=== PATIENT | male | born 1975 | race Caucasian/White ===

== ENCOUNTER 2024-01-15 18:42 | Observation (INO) | payer OTHER ==
[~2024-01-15] VITALS: Ht 185.4 cm; Wt 110.2 kg
[2024-01-15 19:02] LABS: BASOPHILS # (AUTO) 0.06 K/uL (0.00-0.20); BASOPHILS % (AUTO) 0.7 % (0.0-5.0); EOSINOPHILS # (AUTO) 0.31 K/uL (0.00-0.70); EOSINOPHILS % (AUTO) 3.8 % (0.0-8.0); HEMATOCRIT 40.4 % (42-54); IMMATURE GRANULOCYTE ABSOLUTE 0.02 K/uL (0-1); LYMPHOCYTES # (AUTO) 2.6 K/uL (1.0-4.8); LYMPHOCYTES % (AUTO) 30.9 % (21.0-51.0); MEAN CORPUSCULAR HEMOGLOBIN 27.6 pg (27.0-33.0); MEAN CORPUSCULAR HGB CONC 33.4 g/dL (32.0-36.0); MEAN CORPUSCULAR VOLUME 82.4 fL (79-99); MONOCYTES # (AUTO) 0.9 K/uL (0.1-1.0); MONOCYTES % (AUTO) 10.3 % (3.0-13.0); NEUTROPHILS # (AUTO) 4.5 K/uL (1.8-7.7); NEUTROPHILS % (AUTO) 54.1 % (40.0-77.0); PLATELET COUNT (AUTO) 248 K/uL (130-400); RED CELL DISTRIBUTION WIDTH 14.1 % (11.0-15.5); WHITE BLOOD COUNT (AUTO) 8.3 K/uL (4.8-10.8)
[2024-01-15 19:15] LABS: CREATININE 0.8 mg/dL (0.5-1.3); POTASSIUM 4.1 mmol/L (3.5-5.1)
[2024-01-15 19:19] LABS: INR <= 0.93 (0.85-1.15)
[2024-01-15 19:20] LABS: ALBUMIN 3.3 g/dL (3.5-5.0); BILIRUBIN,TOTAL 0.4 mg/dL (0.2-1.0); PARTIAL THROMBOPLASTIN TIME 26.1 SEC (26.3-35.5); TOTAL PROTEIN, SERUM 7.1 g/dL (6.0-8.3)
[2024-01-15 19:26] LABS: B-TYPE NATRIURETIC PEPTIDE 93 pg/mL (0-100)
[2024-01-15] MEDS ORDERED: MAGNESIUM 2GM PREMIX 50ML 50 ML IV PRN (20:30)
[2024-01-15] MEDS ORDERED: KCL 20 MEQ ERTAB PO PRN (20:30)
[2024-01-15] MEDS ORDERED: POTASSIUM CHLORIDE 10MEQ/100ML 100 ML IV PRN (20:30)
[2024-01-15] MEDS ORDERED: POTASSIUM CHLORIDE 10% ELIXIR 20 MEQ/15 ML UDCUP PO PRN (20:30)
[2024-01-15] MEDS: ATORVASTATIN 40 MG TABLET PO ONE (20:35)
[2024-01-15] MEDS: FAMOTIDINE 20MG VIAL IV ONE (20:35)
[2024-01-15] MEDS: ASPIRIN 325MG TAB PO ONE (20:35)
[2024-01-15] MEDS: MORPHINE 2 MG SYG IVP ONE (20:36)
[2024-01-15] MEDS: NITROGLYCERIN 0.4 MG SL TAB SL PRN (20:40)
[2024-01-15] MEDS ORDERED: ACETAMINOPHEN 325 MG TAB PO PRN ×2 (21:00)
[2024-01-15] MEDS ORDERED: DiphenhydrAMINE HCL 50 MG/ML VIAL IV PRN (21:00)
[2024-01-15] MEDS ORDERED: NITROGLYCERIN 0.4 MG SL TAB SL PRN (21:00)
[2024-01-15] MEDS ORDERED: MAG/ALUM/SIMETH 30 ML UDCUP PO PRN (21:00)
[2024-01-15] MEDS: FAMOTIDINE 20MG VIAL IV SCH (21:00)
[2024-01-15] MEDS ORDERED: HYDRALAZINE 20MG/ML VIAL IV PRN (21:00)
[2024-01-15] MEDS ORDERED: ZOLPIDEM TARTRATE 5 MG TAB PO PRN (21:00)
[2024-01-15] MEDS ORDERED: GUAIFENESIN-DM 200/20 MG 10 ML PO PRN (21:00)
[2024-01-15] MEDS ORDERED: ALBUTEROL 0.083% 2.5 MG/3 ML INH IH PRN (21:00)
[2024-01-15] MEDS ORDERED: LACTULOSE 20 GM/30 ML UDCUP PO PRN (21:00)
[2024-01-15] MEDS: HEPARIN 5,000 UNIT VIAL SQ SCH (22:33)
[2024-01-15] MEDS: 0.9%NACL 1000ML 1,000 ML IV SCH (22:34)
[2024-01-15] MEDS ORDERED: GABA300S3 PO (22:56)
[2024-01-15] MEDS ORDERED: APIX5TAB PO (22:56)
[2024-01-15 23:11] VITALS: O2SAT 94
[2024-01-15 23:30] VITALS: BP 127/82; PULSE 96; RESP 18
[2024-01-16] MEDS: ONDANSETRON 4MG INJ IV PRN (00:08)
[2024-01-16] MEDS: KETOROLAC 15MG/ML VIAL (15MG/ML) IV PRN (00:08)
[2024-01-16] MEDS: IPRATROPIUM/ALBUTEROL SULFATE 3 ML SOLUTION IH SCH (00:28)
[2024-01-16 00:31] VITALS: PULSE 96; RESP 18
[2024-01-16 03:29] LABS: BASOPHILS # (AUTO) 0.05 K/uL (0.00-0.20); BASOPHILS % (AUTO) 0.8 % (0.0-5.0); EOSINOPHILS # (AUTO) 0.33 K/uL (0.00-0.70); EOSINOPHILS % (AUTO) 5.1 % (0.0-8.0); HEMATOCRIT 36.3 % (42-54); IMMATURE GRANULOCYTE ABSOLUTE 0.02 K/uL (0-1); LYMPHOCYTES # (AUTO) 2.6 K/uL (1.0-4.8); LYMPHOCYTES % (AUTO) 40.8 % (21.0-51.0); MEAN CORPUSCULAR HEMOGLOBIN 28.3 pg (27.0-33.0); MEAN CORPUSCULAR HGB CONC 33.9 g/dL (32.0-36.0); MEAN CORPUSCULAR VOLUME 83.4 fL (79-99); MONOCYTES # (AUTO) 0.7 K/uL (0.1-1.0); MONOCYTES % (AUTO) 10.3 % (3.0-13.0); NEUTROPHILS # (AUTO) 2.7 K/uL (1.8-7.7); NEUTROPHILS % (AUTO) 42.7 % (40.0-77.0); PLATELET COUNT (AUTO) 207 K/uL (130-400); RED BLOOD CELL COUNT(AUTO) 4.35 MIL/uL (4.50-6.20); RED CELL DISTRIBUTION WIDTH 13.9 % (11.0-15.5); WHITE BLOOD COUNT (AUTO) 6.4 K/uL (4.8-10.8)
[2024-01-16 03:51] LABS: ALBUMIN 2.7 g/dL (3.5-5.0); BILIRUBIN,DIRECT 0.1 mg/dL (0.0-0.3); BILIRUBIN,TOTAL 0.5 mg/dL (0.2-1.0); CREATININE 0.7 mg/dL (0.5-1.3); MAGNESIUM 1.9 mg/dL (1.80-2.40); POTASSIUM 3.4 mmol/L (3.5-5.1)
[2024-01-16 04:00] VITALS: BP 107/74; PULSE 85; RESP 17
[2024-01-16 04:00] LABS: HEMOGLOBIN A1C 5.2 % (4.0-6.0)
[2024-01-16] MEDS: MORPHINE 2 MG SYG IVP ONE (05:24)
[2024-01-16 06:01] LABS: APPEARANCE,URINE CLEAR (CLEAR); BILIRUBIN,URINE NEGATIVE (NEGATIVE); COLOR,URINE YELLOW (YELLOW); GLUCOSE, URINE (UA) NEGATIVE (NEGATIVE); KETONES,URINE NEGATIVE (NEGATIVE); LEUKOCYTE ESTERASE ,URINE NEGATIVE Leu/uL (NEGATIVE); MUCUS,URINE RARE LPF (None Seen); NITRATE,URINE NEGATIVE (NEGATIVE); OCCULT BLOOD,URINE NEGATIVE (NEGATIVE); PH,URINE 6.5 (5.0-8.0); PROTEIN,URINE NEGATIVE (NEGATIVE); RBC,URINE 0-1 /HPF (0-1); UROBILINOGEN,URINE 0.2 mg/dL (0.2-1.0); WBC,URINE 0-1 /HPF (0-1)
[2024-01-16 06:24] VITALS: PULSE 78; RESP 18
[2024-01-16 08:00] VITALS: BP 122/69; PULSE 81; RESP 19
[2024-01-16] MEDS: ACETAMINOPHEN 325 MG TAB PO PRN (08:55)
[2024-01-16] MEDS ORDERED: POTASSIUM CHLORIDE 20MEQ/100ML 100 ML IV PRN (09:30)
[2024-01-16] MEDS ORDERED: MAGNESIUM 2GM PREMIX 50ML 50 ML IV PRN (09:30)
[2024-01-16] MEDS ORDERED: POTASSIUM CHLORIDE 10MEQ SR TAB PO PRN (09:30)
[2024-01-16] MEDS ORDERED: KCL 20 MEQ ERTAB PO PRN (09:30)
[2024-01-16] MEDS ORDERED: POTASSIUM CHLORIDE 10% ELIXIR 20 MEQ/15 ML UDCUP PO PRN (09:30)
[2024-01-16 09:33] LABS: CHOLESTEROL 91 mg/dL (<200); HDL CHOLESTEROL 41 mg/dL (29-71); LDL DIRECT 50 mg/dL (0-99); TRIGLYCERIDES 69 mg/dL (30-200)
[2024-01-16] MEDS ORDERED: ATORVASTATIN 40 MG TABLET PO SCH (21:00)
[2024-01-16] MEDS ORDERED: METOPROLOL TARTRATE 25 MG TAB PO SCH (21:00)
[2024-01-16] MEDS ORDERED: APIXABAN 5 MG TABLET PO SCH (21:00)
[2024-01-16] MEDS ORDERED: ATORVASTATIN 10 MG TABLET PO SCH (21:00)
[2024-01-17] MEDS ORDERED: ASPIRIN 81MG CHEW TAB PO SCH (09:00)
== END 2024-01-16 10:55 | disposition left against medical advice (07) ==
LOC: EDH 18:42 → EDHIP 20:31 → 4BH 23:11
PROVIDERS: ADMIT Hospitalist; ATTEND Hospitalist
DX: R07.9 Chest pain, unspecified (principal); J96.01 Acute respiratory failure with hypoxia; I11.0 Hypertensive heart disease with heart failure; I50.9 Heart failure, unspecified; I48.91 Unspecified atrial fibrillation; I25.10 Atherosclerotic heart disease of native coronary artery without angina pectoris; I25.2 Old myocardial infarction; Z79.01 Long term (current) use of anticoagulants; Z86.73 Personal history of transient ischemic attack (TIA), and cerebral infarction without residual deficits; Z79.899 Other long term (current) drug therapy
CPT/HCPCS: 96374; 96372 ×2; 96361 ×2; 96375 ×2; 99285; 84484 ×3; 80053; 83880 ×2; 85025 ×2; 85610; 85730; 36415 ×2; 71045; 93880; 93005; 96376; 83036; 82550; 80076; 83735; 80061; 80048; 82140; 83605; 81001; 93306; 94640; 84145; G0378 ×13; J3490 ×3; J2270 ×2; J7030; J1644 ×2; J2405; J1885